=== PATIENT | female | born 1975 | race Caucasian/White ===

== ENCOUNTER 2017-09-07 18:59 | Emergency (ER) | payer OTHER, MEDICAID ==
[2017-09-07 19:35] LABS: URINE APPEARANCE SL CLOUDY; URINE BILIRUBIN SMALL (NEGATIVE); URINE BLOOD NEGATIVE (NEGATIVE); URINE COLOR YELLOW; URINE GLUCOSE (UA) NEGATIVE (NEGATIVE); URINE KETONE TRACE (NEGATIVE); URINE LEUKOCYTE ESTERASE SMALL (NEGATIVE); URINE NITRITE POSITIVE (NEGATIVE); URINE PROTEIN TRACE (NEGATIVE); URINE UROBILINOGEN 0.2 E.U./dL (0.20 - 1.00)
[2017-09-07 19:50] LABS: URINE BACTERIA 4+; URINE CALCIUM OXALATE CRYSTALS 1+ /hpf; URINE RBC 0 - 2 (NONE SEEN); URINE WBC >50 (0-2/hpf)
[2017-09-07] MEDS ORDERED: MORPHINE SULFATE 4MG/ML PREFILLED SYRINGE IVP ONE (20:07)
[2017-09-07] MEDS ORDERED: ONDANSETRON HCL IV 4 MG/2 ML VIAL IVP ONE (20:07)
[2017-09-07] MEDS ORDERED: CEFTRIAXONE SODIUM 1 GM in 0.9 % SODIUM CHLORIDE 100ML 100 ML IVPB ONE (20:08)
--- NOTE | 2017-09-07 20:11 | Emergency Department Record ---
History of Present Illness - General Chief complaint: Flank Pain Stated complaint: HEADACHE,KIDNEY PAIN Time Seen by Provider: 09/07/17 20:00 Source: Patient Mode of Arrival: Ambulatory Limitations: No limitations - History of Present Illness Initial comments: 42 yo female presents to ED for evaluation of increased left flank pain symptoms and headache that began yesterday. Patient reports subjective fever, denies nausea/vomiting symptoms. Patient also reports a history of several kidney stones that she is scheduled for lithotrypsy for at [facility] in the next 2 weeks. Patient denies history of migraine headaches. MD Complaint: Other Onset/Timin -: Days(s) Radiation: L flank Severity: Moderate Severity scale (1-10): 7 Quality: Stabbing Consistency: Constant, Intermittent Improves with: None Worsens with: None Patient : No Associated Symptoms: Headaches - Related Data Home Medications Medication Instructions Recorded Confirmed Last Taken Zolpidem Tartrate 5 mg PO QHS 09/07/17 09/07/17 Unknown Previous Rx's Medication Instructions Recorded Ciprofloxacin HCl [Cipro] 500 mg PO Q12HR #20 tablet 09/08/17 Allergies Allergy/AdvReac Type Severity Reaction Status Date / Time codeine Allergy RASH Verified 09/07/17 19:39 iodine Allergy RASH Verified 09/07/17 19:39 ketorolac tromethamine Allergy RASH Verified 09/07/17 19:39 [From Toradol] tramadol HCl [From Ultram] Allergy VOMITING Verified 09/07/17 19:39 Travel Screening - Travel/Exposure Within Last 30 Days Have you traveled within the last 30 days?: No - Travel/Exposure Within Last Year Have you traveled outside the [place] in the last year?: No - Additonal Travel Details Have you been exposed to anyone with a communicable illness?: No - Travel Symptoms Symptom Screening: None Review of Systems Constitutional: Reports: Fever, Malaise. Denies: Chills, Night sweats Eyes: Denies: Eye discharge, Eye pain ENT: Denies: Congestion, Ear pain, Epistaxis Respiratory: Denies: Cough, Dyspnea Cardiovascular: Denies: Chest pain, Dyspnea on exertion, Palpitations Endocrine: Reports: Fatigue. Denies: Heat or cold intolerance Gastrointestinal: Denies: Abdominal pain, Nausea, Vomiting Genitourinary: Denies: Incontinence, Retention Musculoskeletal: Reports: Back pain. Denies: Arthralgia Skin: Denies: Bruising, Change in color Neurological: Denies: Abnormal gait, Confusion, Headache, Seizure Psychiatric: Denies: Anxiety Hematological/Lymphatic: Denies: Anemia, Blood Clots Past Medical History - SOCIAL HISTORY Smoking Status: Light tobacco smoker (<10/day) Alcohol Use: None Drug Use: None - RESPIRATORY Hx Respiratory Disorders: No - CARDIOVASCULAR Hx Cardio Disorders: No - NEURO Hx Neuro Disorders: Yes Hx Headaches: Yes - GI Hx GI Disorders: No - Hx Genitourinary Disorders: Yes Hx Kidney Stones: Yes Hx UTI: Yes - ENDOCRINE Hx Endocrine Disorders: No - MUSCULOSKELETAL Hx Musculoskeletal Disorders: No - PSYCH Hx Psych Problems: Yes Hx Anxiety: Yes - HEMATOLOGY/ONCOLOGY Hx Hematology/Oncology Disorders: No Family Medical History Any Significant Family History?: No Physical Exam - General General Appearance: Alert, Oriented x3, Cooperative, Moderate distress Limitations: No limitations - Head Head exam: Atraumatic, Normocephalic, Normal inspection Head exam detail: negative: Abrasion, Contusion, Jenkins's sign, General tenderness, Hematoma, Laceration - Eye Eye exam: Normal appearance. negative: Conjunctival injection, Periorbital swelling, Periorbital tenderness, Scleral icterus - ENT Ear exam: negative: Auricular hematoma, Auricular trauma Nasal Exam: negative: Active bleeding, Discharge, Dried blood, Foreign body Mouth exam: negative: Drooling, Laceration, Muffled voice, Tongue elevation - Neck Neck exam: Normal inspection. negative: Meningismus, Tenderness - Respiratory Respiratory exam: Normal lung sounds bilaterally. negative: Rales, Respiratory distress, Rhonchi, Stridor - Cardiovascular Cardiovascular Exam: Regular rate, Normal rhythm, Normal heart sounds - GI/Abdominal GI/Abdominal exam: Soft. negative: Rebound, Rigid, Tenderness - Rectal Rectal exam: Deferred - exam: Deferred - Extremities Extremities exam: Normal inspection. negative: Calf tenderness, Pedal edema, Tenderness - Back Back exam: Reports: CVA tenderness (L). Denies: CVA tenderness (R) - Neurological Neurological exam: Alert, Normal gait, Oriented X3 - Psychiatric Psychiatric exam: Normal affect, Normal mood - Skin Skin exam: Normal color. negative: Abrasion Type of lesion: negative: abrasion Course Vital Signs 09/07/17 19:22 Temperature 98.2 F Pulse Rate [ 92 H Pulse Ox Probe] Respiratory 20 Rate Blood Pressure 122/76 [Left Arm] Pulse Ox 98 - Reevaluation(s) Reevaluation #1: 09/07/17 21:23 Labs reviewed: Na 146 CO2 21 AG 18 UA: 09/07/17 21:24 > 50 WBCs 0-2 RBCs 1+ Oxalate crystals 4+ Bacteria CT imaging to exclude an ostructing calculus is pending, Rocephin has completed infusion. Reevaluation #2: 09/07/17 21:39 CT Abdomen and Pelvis: Bilateral intra-renal calculi No obstructing ureteral calculi are present No hydronephrosis is present. MDM: Patient's history, clinical examination, and ED evaluation appear c/w pyelonephritis. Will treat with Cipro BID for 10 days as directed. Patient verbalizes understanding of all instructions and appears stable for discharge at this time. Medical Decision Making - Lab Data Result diagrams: 09/07/17 20:30 09/07/17 20:30 Lab Results 09/07/17 Range/Units 19:24 Urine Color Yellow Urine Appearance Sl cloudy Urine pH 6.0 (5.0-8.0) Ur Specific [place] >= 1.030 (1.002-1.030) Urine Protein Trace H (NEGATIVE) Urine Glucose (UA) Negative (NEGATIVE) Urine Ketones Trace H (NEGATIVE) Urine Blood Negative (NEGATIVE) Urine Nitrite Positive H (NEGATIVE) Urine Bilirubin Small H (NEGATIVE) Urine Urobilinogen 0.2 (0.20 - 1.00) E.U./dL Ur Leukocyte Esterase Small H (NEGATIVE) Urine RBC 0 - 2 (NONE SEEN) Urine WBC >50 (0-2/hpf) U Non-Squamous Epi Cells 3 - 6 /hpf Calcium Oxalate Crystal 1+ /hpf Urine Bacteria 4+ Disposition Disposition: Discharge Clinical Impression: Pyelonephritis Disposition: Home, Self-Care Condition: (2) Stable Instructions: Kidney Infection (ED) Additional Instructions: Return to ED if your symptoms worsen or if you have any concerns. Cipro as directed. Follow-up with your family doctor in 3-5 days as directed. Prescriptions: Ciprofloxacin HCl [Cipro] 500 mg PO Q12HR #20 tablet Forms: Patient Portal Access Time of Disposition: 21:27 Quality - Quality Measures Quality Measures: N/A - Blood Pressure Screening Does Patient Have Any of the Following: No Blood Pressure Classification: Normal BP Reading Systolic Measurement: 103 Diastolic Measurement: 74 Screening for High Blood Pressure: < Normal BP, F/U Not Required > [G8774]
[2017-09-07] MEDS ORDERED: 0.9 % SODIUM CHLORIDE 1000ML 1,000 ML IV SCH (20:15)
[2017-09-07 20:43] LABS: BASO % 0.5 % (0-6); EOS % 2.3 % (0-6); GRAN % 58.6 % (47-80); HEMATOCRIT 37.9 % (35.0-47.0); HEMOGLOBIN 12.6 gm/dl (11.6-16.0); LYMPH % 28.4 % (16-45); MEAN CELL VOLUME 90.2 fl (81-97); MEAN CORPUSCULAR HGB CONC 33.2 g/dl (32-36); MEAN PLATELET VOLUME 10.3 fl (7.4-10.4); MONO % 10.2 % (0-9); PLATELET COUNT 294 K/uL (130-400); WHITE BLOOD COUNT W/O DIFF 10.8 K/uL (4.2-12.2)
[2017-09-07 20:56] LABS: ALB/GLOB RATIO 1.4 (1.1-1.8); ALBUMIN 3.8 g/dL (4.0-5.0); ALKALINE PHOSPHATASE 119 U/L (35-104); ALT/SGPT 25 U/L (<33); AST/SGOT 19 U/L (10.0-35.0); BLOOD UREA NITROGEN 13 mg/dL (6-20); CREATININE 0.5 mg/dL (0.5-0.9); EST GLOMERULAR FILTRATION RATE > 60 mL/min; GLUCOSE,RANDOM 74 mg/dL (74-109); TOTAL PROTEIN 6.5 g/dL (6.6-8.7)
[2017-09-07] MEDS ORDERED: DIPHENHYDRAMINE HCL 50 MG/ML VIAL IVP ONE (21:12)
[2017-09-07] MEDS ORDERED: HYDROXYZINE PAMOATE 25 MG CAPSULE PO ONE (21:37)
--- NOTE | 2017-09-09 15:02 | CT SCAN REPORT ---
EXAM: CT OF THE ABDOMEN AND PELVIS HISTORY: LEFT FLANK PAIN. TECHNIQUE: CT of the abdomen and pelvis was performed without intravenous or oral contrast. Comparison: CT of the abdomen and pelvis 05/18/[address] of the abdomen and pelvis 02/23/15. FINDINGS: There is a 3 mm nodule at the left lung base unchanged from the patient's previous study. The lung bases are otherwise unremarkable. The liver and spleen are unremarkable. No pancreatic mass or inflammatory change. The bile ducts are not dilated. There are no calcified gallstones. No adrenal lesion seen. There are bilateral nonobstructing intrarenal calculi. The largest calculus on the left measures 7 mm and is seen in the upper left kidney. A 6 mm calculus is also present in the lower left kidney. The largest calculus on the right measures 5 mm and is present in the mid right kidney. no ureteral calculus or hydronephrosis identified. No perinephric mass or fluid collection identified. No contour deforming renal lesion. The kidneys are not optimally assessed, however, without contrast. No aortic aneurysm. No periaortic mass or adenopathy. There are no dilated bowel loops. There is no pelvic mass, abscess or adenopathy. There is no free air or free fluid identified. The uterus is surgically absent. The appendix is unremarkable. There is scoliosis. No fracture or destructive bone lesion. IMPRESSION: 1. THERE ARE BILATERAL NONOBSTRUCTING INTRARENAL CALCULI. NO URETERAL CALCULUS OR HYDRONEPHROSIS. 2. NO ACUTE ABDOMINAL OR PELVIC PROCESS IDENTIFIED. 3. PRIOR HYSTERECTOMY. JOB NUMBER: [id number] [facility]
== END 2017-09-07 22:40 | disposition home or self-care (01) ==
LOC: ER 18:59
DX: N10 Acute pyelonephritis (principal); R51 Headache; F17.210 Nicotine dependence, cigarettes, uncomplicated; Z87.442 Personal history of urinary calculi
CPT/HCPCS: 99284 ×2; 96374; 96375; 85025; 80053; 81001; 74176; J2405; J2274; J1200; J7030

== ENCOUNTER 2018-07-02 13:11 | Emergency (ER) | payer BC, OTHER ==
[2018-07-02] MEDS ORDERED: 0.9 % SODIUM CHLORIDE 1000ML 1,000 ML IV ONE (13:30)
[2018-07-02] MEDS ORDERED: ONDANSETRON HCL IV 4 MG/2 ML VIAL IVP ONE (13:30)
[2018-07-02] MEDS ORDERED: MORPHINE SULFATE 10 MG/ML VIAL IVP ONE (13:30)
--- NOTE | 2018-07-02 13:38 | Emergency Department Record ---
History of Present Illness - General Chief complaint: Flank Pain Stated complaint: KIDNEY INFECTION Time Seen by Provider: 07/02/18 13:14 Source: Patient Mode of Arrival: Ambulatory Limitations: No limitations - History of Present Illness Initial comments: 43 yo female presents with right flank pain, nausea, and chills for two days. She reports she has known renal stones bilateral with recurrent infections in the past. She is under the care of doctors at the [facility]. [facility] a ur[facility]ysis [facility] on the with culture results today. She called her doctors and was instructed to go to the [facility] for evaluation. She is scheduled July 23 for surgery. She had left ureteroscopy and laser lithotripsy 12/2017. She has known R 1cm stone with two other smaller stones. A urine culture 04/28/18 grew Klebsiella pneumonia. She states it has been about 2 weeks since her last dose of cipro. She is not on any prophylactic antibiotics. MD Complaint: Other (Right Flank Pain) Onset/Timin -: Days(s) Radiation: R flank Severity: Severe Quality: Aching, Sharp Consistency: Constant Improves with: None Worsens with: None Patient : No Associated Symptoms: Dysuria, Fever/chills, Nausea/vomiting - Related Data Previous Rx's Medication Instructions Recorded Ciprofloxacin HCl [Cipro] 500 mg PO Q12HR #28 tablet 07/02/18 Ondansetron [Zofran Odt] 4 mg PO Q8H #20 tab.rapdis 07/02/18 Allergies Allergy/AdvReac Type Severity Reaction Status Date / Time codeine Allergy RASH Verified 09/07/17 19:39 iodine Allergy RASH Verified 09/07/17 19:39 ketorolac tromethamine Allergy RASH Verified 09/07/17 19:39 [From Toradol] tramadol HCl [From Ultram] Allergy VOMITING Verified 09/07/17 19:39 Travel Screening - Travel/Exposure Within Last 30 Days Have you traveled within the last 30 days?: No - Travel/Exposure Within Last Year Have you traveled outside the [place] in the last year?: No - Additonal Travel Details Have you been exposed to anyone with a communicable illness?: No Past Medical History - SOCIAL HISTORY Smoking Status: Light tobacco smoker (<10/day) Alcohol Use: None Drug Use: None - RESPIRATORY Hx Respiratory Disorders: No - CARDIOVASCULAR Hx Cardio Disorders: No - NEURO Hx Neuro Disorders: Yes Hx Headaches: Yes - GI Hx GI Disorders: No - Hx Genitourinary Disorders: Yes Hx Kidney Stones: Yes Hx UTI: Yes - ENDOCRINE Hx Endocrine Disorders: No - MUSCULOSKELETAL Hx Musculoskeletal Disorders: No - PSYCH Hx Psych Problems: Yes Hx Anxiety: Yes - HEMATOLOGY/ONCOLOGY Hx Hematology/Oncology Disorders: No Family Medical History Any Significant Family History?: No Course Vital Signs 07/02/18 13:24 Temperature 97.6 F Pulse Rate [ 125 H Pulse Ox Probe] Respiratory 20 Rate Blood Pressure 113/80 [Left Arm] Pulse Ox 98 - Reevaluation(s) Reevaluation #1: 07/02/18 14:02 The labs were reviewed The CBC is normal The CMP without significant abnormality The UA is N-, Trace LE, no WBC or Bacteria. Epithilials noted. The [facility] urine culture from 06/29/18 specimen was reviewed Citrobacter freundii greater than 100,000 GNR 25-50,000 Susceptibility noted 07/02/18 14:23 The urine culture was reviewed with Dr Rajput of ID at of . He recommends 2 weeks of cipro. His office will restart the prophylactic antibiotic after after the 2 week course. Medical Decision Making - Lab Data Result diagrams: 07/02/18 13:38 07/02/18 13:38 Disposition Disposition: Discharge Clinical Impression: Urinary tract infection Disposition: Home, Self-Care Condition: (1) Good Instructions: Urinary Tract Infection in Women (ED) Additional Instructions: Call your doctor for the next available follow up appointment Return to the ER for a recheck if worse, any new concerns or questions Take the prescriptions provided as directed: Cipro twice daily for 2 weeks Review this ER visit and the tests performed with your family doctor Prescriptions: Ciprofloxacin HCl [Cipro] 500 mg PO Q12HR #28 tablet Ondansetron [Zofran Odt] 4 mg PO Q8H #20 tab.rapdis Forms: Patient Portal Access Time of Disposition: 14:26 Quality - Quality Measures Quality Measures: N/A - Blood Pressure Screening Does Patient Have Any of the Following: No Blood Pressure Classification: Normal BP Reading Systolic Measurement: 102 Diastolic Measurement: 69 Screening for High Blood Pressure: < Normal BP, F/U Not Required > [G8783]
[2018-07-02 13:39] LABS: URINE APPEARANCE CLEAR; URINE BILIRUBIN NEGATIVE (NEGATIVE); URINE BLOOD NEGATIVE (NEGATIVE); URINE COLOR YELLOW; URINE GLUCOSE (UA) NEGATIVE (NEGATIVE); URINE KETONE NEGATIVE (NEGATIVE); URINE LEUKOCYTE ESTERASE TRACE (NEGATIVE); URINE NITRITE NEGATIVE (NEGATIVE); URINE PROTEIN NEGATIVE (NEGATIVE); URINE UROBILINOGEN 0.2 E.U./dL (0.20 - 1.00)
[2018-07-02 13:48] LABS: HEMATOCRIT 44.9 % (35.0-47.0); HEMOGLOBIN 14.7 gm/dl (11.6-16.0); MEAN CORPUSCULAR HEMOGLOBIN 28.5 pg (27-33); MEAN CORPUSCULAR HGB CONC 32.7 g/dl (32-36); MEAN PLATELET VOLUME 9.5 fl (7.4-10.4); PLATELET COUNT 323 K/uL (130-400); RED BLOOD COUNT 5.16 M/uL (3.80-5.40); WHITE BLOOD COUNT W/O DIFF 5.7 K/uL (4.2-12.2)
[2018-07-02 13:55] LABS: BLOOD UREA NITROGEN 11 mg/dL (6-20); CREATININE 0.6 mg/dL (0.5-0.9); EST GLOMERULAR FILTRATION RATE > 60 mL/min
[2018-07-02 13:56] LABS: TOTAL PROTEIN 7.1 g/dL (6.6-8.7)
[2018-07-02 13:58] LABS: GLUCOSE,RANDOM 102 mg/dL (74-109)
[2018-07-02 14:00] LABS: URINE EPITHELIAL CELLS 16 - 20 (FEW); URINE RBC 0 - 2 (NONE SEEN)
[2018-07-02 14:00] LABS: ALB/GLOB RATIO 1.2 (1.1-1.8); ALBUMIN 3.8 g/dL (4.0-5.0); ALKALINE PHOSPHATASE 139 U/L (35-104); ALT/SGPT 34 U/L (<33); AST/SGOT 24 U/L (10.0-35.0)
[2018-07-02 14:01] LABS: URINE AMORPHOUS SEDIMENT 1+; URINE BACTERIA NONE SEEN
[2018-07-02] MEDS ORDERED: CIPROFLOXACIN LACTATE/D5W 400 MG/200 ML BAG IVPB ONE (14:21)
[2018-07-02 14:33] LABS: URINE APPEARANCE CLEAR; URINE BILIRUBIN NEGATIVE (NEGATIVE); URINE BLOOD NEGATIVE (NEGATIVE); URINE COLOR YELLOW; URINE GLUCOSE (UA) NEGATIVE (NEGATIVE); URINE KETONE TRACE (NEGATIVE); URINE NITRITE NEGATIVE (NEGATIVE); URINE PROTEIN NEGATIVE (NEGATIVE); URINE UROBILINOGEN 0.2 E.U./dL (0.20 - 1.00)
[2018-07-02] MEDS ORDERED: HYDROMORPHONE HCL 2 MG/ML VIAL IVP ONE (14:35)
[2018-07-02 14:47] LABS: URINE LEUKOCYTE ESTERASE TRACE (NEGATIVE)
== END 2018-07-02 15:55 | disposition home or self-care (01) ==
LOC: ER 13:11
DX: N39.0 Urinary tract infection, site not specified (principal); R10.31 Right lower quadrant pain; R11.2 Nausea with vomiting, unspecified; F17.210 Nicotine dependence, cigarettes, uncomplicated; Z87.442 Personal history of urinary calculi
CPT/HCPCS: 99284 ×2; 96365; 96375; 96361; 80053; 81001; 81003; 85027; J0744; J2405; J1170; J2270; J7030

== ENCOUNTER 2018-12-16 17:27 | Emergency (ER) | payer BC ==
[2018-12-16] MEDS ORDERED: HYDROMORPHONE HCL 2 MG/ML VIAL IVP ONE (18:36)
[2018-12-16] MEDS ORDERED: ONDANSETRON HCL IV 4 MG/2 ML VIAL IVP PRN (18:37)
[2018-12-16] MEDS ORDERED: 0.9 % SODIUM CHLORIDE 1,000 ML BAG IV ONE (18:37)
[2018-12-16 18:51] LABS: URINE APPEARANCE SL CLOUDY; URINE BILIRUBIN NEGATIVE (NEGATIVE); URINE BLOOD NEGATIVE (NEGATIVE); URINE COLOR YELLOW; URINE GLUCOSE (UA) NEGATIVE (NEGATIVE); URINE KETONE NEGATIVE (NEGATIVE); URINE LEUKOCYTE ESTERASE SMALL (NEGATIVE); URINE NITRITE NEGATIVE (NEGATIVE); URINE PROTEIN NEGATIVE (NEGATIVE); URINE UROBILINOGEN 0.2 E.U./dL (0.20 - 1.00)
--- NOTE | 2018-12-16 18:59 | Emergency Department Record ---
History of Present Illness - General Chief complaint: Female Urogenital Problem Stated complaint: UTI?/BOTH FLANK PAIN Time Seen by Provider: 12/16/18 18:27 Source: Patient Mode of Arrival: Ambulatory Limitations: No limitations - History of Present Illness Initial comments: Pt to ED with 2 days of pain in the flank and concern for recurrent renal ston e. Hx of multiple large stones up to "11mm" requiring stents and skilled nursing IV antibiotics with PIC lines. Pt has not taken pain meds for this event. No fever, nausea, vomiting, AP, hematuria. Has had multiple CT scans this year for the same. Care is thru nephrology and ID services. Onset/Timin -: Days(s) Radiation: L flank, R flank Severity: Moderate Severity scale (1-10): 7 Quality: Stabbing Consistency: Intermittent Improves with: Other Worsens with: None Patient : No Associated Symptoms: Denies other symptoms - Related Data Home Medications Medication Instructions Recorded Confirmed Last Taken Sulfamethoxazole/Trimethoprim 1 tab PO BID 12/16/18 12/16/18 12/16/18 [Bactrim Ds Tablet] Previous Rx's Medication Instructions Recorded Ondansetron [Zofran Odt] 4 mg PO Q8H #20 tab.rapdis 07/02/18 Allergies Allergy/AdvReac Type Severity Reaction Status Date / Time codeine Allergy RASH Verified 12/16/18 17:38 iodine Allergy RASH Verified 12/16/18 17:38 ketorolac tromethamine Allergy RASH Verified 12/16/18 17:38 [From Toradol] tramadol HCl [From Ultram] Allergy VOMITING Verified 12/16/18 17:38 Travel Screening - Travel/Exposure Within Last 30 Days Have you traveled within the last 30 days?: No - Travel/Exposure Within Last Year Have you traveled outside the [place] in the last year?: No - Additonal Travel Details Have you been exposed to anyone with a communicable illness?: No - Travel Symptoms Symptom Screening: None Review of Systems Constitutional: Denies: Chills, Fever, Weakness Eyes: Denies: Eye discharge ENT: Denies: Congestion Respiratory: Denies: Cough, Dyspnea Cardiovascular: Denies: Arrhythmia, Chest pain Endocrine: Denies: Fatigue, Polydipsia, Polyuria Gastrointestinal: Denies: Abdominal pain, Diarrhea, Nausea, Vomiting Genitourinary: Denies: Abnormal menses Musculoskeletal: Reports: As per HPI, Back pain Skin: Denies: Bruising, Rash Neurological: Denies: Seizure, Tingling Psychiatric: Denies: Anxiety Hematological/Lymphatic: Denies: Anemia Past Medical History - SOCIAL HISTORY Smoking Status: Light tobacco smoker (<10/day) Alcohol Use: None Drug Use: None - RESPIRATORY Hx Respiratory Disorders: No - CARDIOVASCULAR Hx Cardio Disorders: No - NEURO Hx Neuro Disorders: Yes Hx Headaches: Yes - GI Hx GI Disorders: No - Hx Genitourinary Disorders: Yes Hx Kidney Stones: Yes Hx UTI: Yes - ENDOCRINE Hx Endocrine Disorders: No - MUSCULOSKELETAL Hx Musculoskeletal Disorders: No - PSYCH Hx Psych Problems: Yes Hx Anxiety: Yes - HEMATOLOGY/ONCOLOGY Hx Hematology/Oncology Disorders: No Family Medical History Any Significant Family History?: No Physical Exam - General General Appearance: Alert, Oriented x3, Cooperative, No acute distress - Head Head exam: Normal inspection - Eye Eye exam: Normal appearance, PERRL, EOMI - ENT ENT exam: Normal exam, Mucous membranes moist, Normal external ear exam, Normal orophraynx - Neck Neck exam: Normal inspection, Full ROM. negative: Tenderness - Respiratory Respiratory exam: Normal lung sounds bilaterally. negative: Respiratory distress - Cardiovascular Cardiovascular Exam: Regular rate, Normal rhythm, Normal heart sounds - GI/Abdominal GI/Abdominal exam: Soft, Normal bowel sounds. negative: Distended, Guarding, Tenderness - Extremities Extremities exam: Normal inspection, Full ROM. negative: Calf tenderness, Tenderness - Back Back exam: Reports: CVA tenderness (R). Denies: CVA tenderness (L), Paraspinal tenderness - Neurological Neurological exam: Alert, Normal gait, Oriented X3 - Psychiatric Psychiatric exam: Normal affect, Normal mood - Skin Skin exam: Normal color. negative: Rash Course Vital Signs 12/16/18 12/16/18 17:36 17:41 Temperature 97.8 F 97.8 F Pulse Rate [ 100 H Pulse Ox Probe] Respiratory 16 16 Rate Blood Pressure 126/83 [Left Arm] Pulse Ox 99 99 - Reevaluation(s) Reevaluation #1: 12/16/18 18:57 Seen and unable to take Toradol. Requests IV hydration and IV pain meds "and Zofran". 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 Concern that she is "early" in a stone and that "they get bad fast". Due to frequent hx of stones yet no blood in UA we will get US renal to look for hydronephrosis. Pt aware and agrees. Reevaluation #2: 12/16/18 20:10 No eveidence of stone or hydronephrosis. No blood in urine and no signs infection in urine. Pt reassured. Plan home with follow with your doctors. Medical Decision Making - Lab Data Lab Results 12/16/18 Range/Units 18:30 Urine Color Yellow Urine Appearance Sl cloudy Urine pH 7.5 (5.0-8.0) Ur Specific [place] 1.015 (1.002-1.030) Urine Protein Negative (NEGATIVE) Urine Glucose (UA) Negative (NEGATIVE) Urine Ketones Negative (NEGATIVE) Urine Blood Negative (NEGATIVE) Urine Nitrite Negative (NEGATIVE) Urine Bilirubin Negative (NEGATIVE) Urine Urobilinogen 0.2 (0.20 - 1.00) E.U./dL Ur Leukocyte Esterase Small H (NEGATIVE) Disposition Disposition: Discharge Clinical Impression: Left flank pain Condition: (1) Good Instructions: Abdominal Pain (ED) Additional Instructions: See your aed trainer as needed. Return to the ED as needed. Forms: Patient Portal Access Time of Disposition: 20:11 Quality - Quality Measures Quality Measures: N/A - Blood Pressure Screening Does Patient Have Any of the Following: No Blood Pressure Classification: Pre-Hypertensive BP Reading Systolic Measurement: 126 Diastolic Measurement: 83 Screening for High Blood Pressure: < Pre-Hypertensive BP, F/U Documented > [G8950] Pre-Hypertensive Follow-up Interventions: Follow-up with rescreen every year.
[2018-12-16 19:05] LABS: URINE BACTERIA NONE SEEN; URINE RBC NONE SEEN (NONE SEEN)
--- NOTE | 2018-12-18 14:34 | RADIOLOGY REPORT ---
EXAM: ABDOMEN, ONE VIEW HISTORY: BILATERAL FLANK PAIN. TECHNIQUE: A single AP view of the abdomen was obtained. Comparison: Noncontrast CT 11/13/17. FINDINGS: Several small calculi project over the left kidney measuring up to 5 mm. No calculi are appreciated over the right kidney, though the evaluation of the right kidney is suboptimal due to overlying bowel gas and stool. The pelvis is also not well assessed due to bowel gas and stool. Nonobstructed bowel gas pattern. Mild stool throughout the colon, greatest proximally. The bones are unremarkable. The diaphragm is not included. IMPRESSION: LEFT NEPHROLITHIASIS. SUBOPTIMAL EVALUATION OF THE RIGHT KIDNEY AND PELVIS DUE TO BOWEL GAS AND STOOL. J[facility]BER: [id number] [facility]
--- NOTE | 2018-12-18 14:51 | ULTRASOUND REPORT ---
EXAM: ULTRASOUND OF THE RETROPERITONEUM COMPLETE HISTORY: LEFT FLANK PAIN AND RIGHT FLANK PAIN. TECHNIQUE: Standard ultrasound imaging of the kidneys and bladder were obtained. Comparison: Noncontrast CT 11/13/17. FINDINGS: The bladder is unremarkable. The prevoid bladder volume was 74 ml. Both ureteral jets are seen. No significant post void residual bladder volume. The right kidney measures 9.2 cm in length and is normal in echogenicity. No hydronephrosis. The left kidney measures 10.1 cm in length and is normal in echogenicity. No hydronephrosis. IMPRESSION: NO HYDRONEPHROSIS. [facility]: [id number] [facility]
== END 2018-12-16 20:30 | disposition home or self-care (01) ==
LOC: ER 17:27
DX: R10.32 Left lower quadrant pain (principal); Z87.442 Personal history of urinary calculi; F17.210 Nicotine dependence, cigarettes, uncomplicated
CPT/HCPCS: 74018; 76775; 81001; 96374; 96375; 99284; J2405; J7030